=== PATIENT | male | born 1965 | race Caucasian/White ===

== ENCOUNTER 2023-09-18 15:00 | Emergency (ER) | payer BC ==
[2023-09-18] MEDS: Ondansetron 4 MG Tab.DIS PO ONE (15:42)
[2023-09-18] MEDS: methylPREDNISolone Sodium Succinate 125 MG/2 ML SDV IM ONE (15:42)
[2023-09-18] MEDS: Acetaminophen/oxyCODONE 325-10 MG Tab PO ONE (15:42)
== END 2023-09-18 16:43 | disposition home or self-care (01) ==
LOC: MW.ED 15:00
DX: M54.42 Lumbago with sciatica, left side (principal); I48.91 Unspecified atrial fibrillation; Z79.01 Long term (current) use of anticoagulants; Z79.899 Other long term (current) drug therapy
CPT/HCPCS: 96372; 99283; A9270; J2919